=== PATIENT | male | born 1950 | race African-American/Black ===

== ENCOUNTER 2017-09-10 10:40 | Emergency (ER) | payer MEDICARE, OTHER ==
[2017-09-10] MEDS ORDERED: Ketorolac Tromethamine 30 MG/ML VIAL ONE (12:18)
== END 2017-09-10 12:43 | disposition home or self-care (01) ==
LOC: ERS 10:40
DX: M10.9 Gout, unspecified (principal)
CPT/HCPCS: 96372; J1885

== ENCOUNTER 2019-07-21 14:01 | Emergency (ER) | payer MEDICARE ==
[2019-07-21] MEDS ORDERED: Ondansetron ODT 4 MG TAB ONE (14:24)
[2019-07-21] MEDS ORDERED: Morphine 4 MG/ML VIAL ONE (14:24)
[2019-07-21] MEDS ORDERED: predniSONE 20 MG TAB ONE (14:24)
== END 2019-07-21 14:47 | disposition home or self-care (01) ==
LOC: ERS 14:01
DX: M54.5 Low back pain (principal); M10.9 Gout, unspecified; Z79.899 Other long term (current) drug therapy
CPT/HCPCS: 96372; 99283; J2270; J7512; Q0162